=== PATIENT | male | born 2000 | race Two or more races ===

== ENCOUNTER 2024-09-29 10:05 | Emergency (ER) | payer SELFPAY ==
[2024-09-29] MEDS: Ketorolac 60 MG/2 ML SDV IM ONE (11:28)
== END 2024-09-29 11:36 | disposition home or self-care (01) ==
LOC: JD.ED 10:05
DX: K08.89 Other specified disorders of teeth and supporting structures (principal); Z79.899 Other long term (current) drug therapy
CPT/HCPCS: 96372; 99282; J1885